=== PATIENT | female | born 1995 | race African-American/Black ===

== ENCOUNTER 2017-03-09 14:15 | Emergency (ER) | payer OTHER ==
[~2017-03-09] VITALS: Ht 170.2 cm; Wt 93.8 kg
[~2017-03-09 14:15] MED LIST: BLEPH-1010 % OD; CIPRO500 MG OR; CLARITIN10 MG OR; FLEXERIL10 MG OR; GENTAMICIN0.3 % OD; NAPROSYN500 MG OR; NO HOME MEDS; PENICILLN VK500 MG OR; SOD SULFACET OD; TRIMOX500 MG PO; ULTRAM50 MG OR
[2017-03-09 15:06] LABS: INFLUENZA A NONE DETECTED (NONE DETECT); INFLUENZA B NONE DETECTED (NONE DETECT)
[2017-03-09 16:45] VITALS: BP 132/76
[2017-03-09] MEDS ORDERED: MUCINEX600 MG PO ×2 (16:47→16:49)
== END 2017-03-09 16:45 | disposition home or self-care (01) | DRG 153 ==
LOC: ED 14:15
PROVIDERS: Emergency Medicine
DX: J06.9 Acute upper respiratory infection, unspecified (principal)

== ENCOUNTER 2018-03-06 07:54 | Emergency (ER) | payer OTHER ==
[~2018-03-06] VITALS: Ht 170.2 cm; Wt 86.0 kg
[~2018-03-06 07:54] MED LIST changes: +MUCINEX600 MG PO
[2018-03-06 08:49] VITALS: BP 124/68
[2018-03-06] MEDS ORDERED: NAPROSYN500 MG PO (08:49)
[2018-03-06] MEDS ORDERED: FLEXERIL PO (08:49)
== END 2018-03-06 09:20 | disposition home or self-care (01) | DRG 556 ==
LOC: ED 07:54
DX: M79.1 Myalgia (principal)

== ENCOUNTER 2021-04-17 15:46 | Emergency (ER) | payer SELFPAY ==
[~2021-04-17] VITALS: Ht 170.2 cm; Wt 70.0 kg
[~2021-04-17 15:46] MED LIST changes: +FLEXERIL PO; +NAPROSYN500 MG PO
[2021-04-17 16:57] LABS: HEMATOCRIT 38.9 % (37.0-47.0); HEMOGLOBIN 13.4 g/dl (12.0-16.0); MEAN CORPUSCULAR HGB 30.1 pG CALC (26.0-32.0); MEAN CORPUSCULAR HGB CONC 34.4 g/dL CAL (32.0-36.0); NEUT# 3.42 thou/uL (2.00-7.15); RED BLOOD COUNT 4.45 mill/uL (4.20-5.60); RED CELL DISTRI WIDTH 12.3 % (11.5-15.5)
[2021-04-17 16:59] LABS: MEAN CELL VOLUME 87.4 fL CALC (80.0-100.0)
[2021-04-17 17:20] LABS: ALBUMIN 4.3 g/dL (3.2-5.0); ANION GAP 11 (6-22 (CALC)); BILIRUBIN, TOTAL 0.5 mg/dL (0.0-1.4); BUN 10 mg/dL (7-17); BUN/CREATININE RATIO 14 (12-20 (CALC)); CARBON DIOXIDE 29 mmol/l (22-30); CHLORIDE 103 mmol/l (95-108); CREATININE 0.7 mg/dL (0.5-1.0); GFR > 60 ML/MIN (>=60 (CALC)); GFR FOR AFR.AMER. > 60 ML/MIN (>=60 (CALC)); POTASSIUM 3.6 mmol/l (3.5-5.1); SGOT/AST 19 u/l (14-36); SODIUM 140 mmol/l (137-146); TOTAL PROTEIN 7.9 g/dL (6.3-8.2)
[2021-04-17 17:22] LABS: ALKALINE PHOSPHATASE 64 u/l (38-126)
[2021-04-17 17:29] LABS: MYOGLOBIN 23 ng/mL (0 - 62)
[2021-04-17] MEDS ORDERED: PREVACID30 M3 PO (19:13)
[2021-04-17] MEDS ORDERED: NAPROXEN500 MG PO (19:13)
[2021-04-17 20:30] VITALS: BP 110/65
== END 2021-04-17 20:30 | disposition home or self-care (01) | DRG 392 ==
LOC: ED 15:46
PROVIDERS: Emergency Medicine
DX: K29.70 Gastritis, unspecified, without bleeding (principal)
CPT/HCPCS: Q9967